=== PATIENT | male | born 1970 | race Caucasian/White ===

== ENCOUNTER 2018-07-20 10:51 | Emergency (ER) | payer OTHER, BC ==
[~2018-07-20] VITALS: Ht 193 cm; Wt 132.0 kg
[2018-07-20 10:53] VITALS: Ht 193 cm; Wt 132.0 kg
[2018-07-20 12:22] VITALS: BP 106/53
== END 2018-07-20 12:22 | disposition home or self-care (01) ==
LOC: ED 10:51
DX: S93.601A Unspecified sprain of right foot, initial encounter (principal); I10 Essential (primary) hypertension; X50.1XXA Overexertion from prolonged static or awkward postures, initial encounter; Z98.890 Other specified postprocedural states; Y93.89 Activity, other specified; Y92.89 Other specified places as the place of occurrence of the external cause; Y99.8 Other external cause status
CPT/HCPCS: Q0092